=== PATIENT | female | born 1940 | race Caucasian/White ===

== ENCOUNTER 2018-12-13 07:42 | Outpatient (CLI) | payer MEDICARE, OTHER ==
[2018-12-13 08:57] LABS: EOSINOPHILS # (AUTO) 0.1 10^3/uL (0.0-0.7); HGB - HEMOGLOBIN 12.7 g/dL (12.0-16.0); LYMPHOCYTES # (AUTO) 1.3 10^3/uL (1.5-3.5); LYMPHOCYTES % (AUTO) 26.7 %; MEAN CORPUSCULAR HEMOGLOBIN 32.7 pg (27.0-31.0); MEAN CORPUSCULAR VOLUME 96.1 fL (81.0-99.0); MEAN PLATELET VOLUME 8.6 fL (7.9-10.8); MONOCYTES # (AUTO) 0.5 10^3/uL (0.0-1.0); MONOCYTES % (AUTO) 10.6 %; NEUTROPHILS # (AUTO) 2.8 10^3/uL (1.5-6.6); NEUTROPHILS % (AUTO) 58.7 %; PLT - PLATELET COUNT 188 10^3/uL (130-450); RED BLOOD COUNT 3.88 10^6/uL (4.20-5.40); RED CELL DISTRIBUTION WIDTH 13.3 % (12.0-15.0); WHITE BLOOD COUNT 4.8 x10^3/uL (4.8-10.8)
[2018-12-13 08:58] LABS: CALCIUM 9.1 mg/dL (8.5-10.3); CREATININE 0.8 mg/dL (0.4-1.0)
[2018-12-13 09:28] LABS: PLATELET ESTIMATE, MANUAL NORMAL (130-450,000) (NORMAL); PLATELET MORPHOLOGY NORMAL APPEARANCE (NORMAL); RBC MORPHOLOGY (MULTIPLE) NORMAL APPEARANCE (NORMAL)
== END 2018-12-13 07:43 | disposition home or self-care (01) ==
LOC: RT 07:42
PROVIDERS: ATTEND Orthopaedic Surgery Orthopaedic Surgery of the Spine
DX: Z01.818 Encounter for other preprocedural examination (principal)
CPT/HCPCS: 36415; 80048; 85025; 93005

== ENCOUNTER 2022-02-11 15:48 | Outpatient (CLI) | payer MEDICARE, OTHER ==
[2022-02-11 15:56] LABS: BASOPHILS # (AUTO) 0.1 10^3/uL (0.0-0.1); BASOPHILS % (AUTO) 1.3 %; EOSINOPHILS # (AUTO) 0.2 10^3/uL (0.0-0.7); EOSINOPHILS % (AUTO) 3.3 %; HCT - HEMATOCRIT 41.7 % (37.0-47.0); HGB - HEMOGLOBIN 13.7 g/dL (12.0-16.0); LYMPHOCYTES # (AUTO) 1.4 10^3/uL (1.5-3.5); LYMPHOCYTES % (AUTO) 30.9 %; MEAN CORPUSCULAR HEMOGLOBIN 32.2 pg (27.0-31.0); MEAN CORPUSCULAR HGB CONC 32.9 g/dL (32.0-36.0); MEAN CORPUSCULAR VOLUME 98.1 fL (81.0-99.0); MONOCYTES # (AUTO) 0.5 10^3/uL (0.0-1.0); MONOCYTES % (AUTO) 11.3 %; NEUTROPHILS # (AUTO) 2.4 10^3/uL (1.5-6.6); PLT - PLATELET COUNT 210 10^3/uL (130-450); RED BLOOD COUNT 4.25 10^6/uL (4.20-5.40); RED CELL DISTRIBUTION WIDTH 12.8 % (12.0-15.0); WHITE BLOOD COUNT 4.6 x10^3/uL (4.8-10.8)
[2022-02-11 16:11] LABS: ALBUMIN 4.2 g/dL (3.2-5.5); ALKALINE PHOSPHATASE 64 IU/L (42-121); ALT ALANINE AMINOTRANSFERASE 18 IU/L (10-60); AST ASPARTATE AMINOTRANSFERASE 21 IU/L (10-42); BILIRUBIN,TOTAL 1.1 mg/dL (0.2-1.0); BUN - BLOOD UREA NITROGEN 13 mg/dL (6-20); CARBON DIOXIDE - CO2 28 mmol/L (21-32); CHLORIDE 97 mmol/L (101-111); CREATININE 0.6 mg/dL (0.4-1.0); GFR - MDRD 96 (>89); GLUCOSE 102 mg/dL (70-100); POTASSIUM 4.3 mmol/L (3.5-5.0); SODIUM 135 mmol/L (135-145); TOTAL PROTEIN 7.1 g/dL (6.7-8.2)
[2022-02-11 16:12] LABS: ALBUMIN/GLOBULIN RATIO 1.4 (1.0-2.2); CHOL/HDL RATIO 3.8 (<4.4); CHOLESTEROL 296 mg/dL; HDL CHOLESTEROL 77 mg/dL; LDL CHOLESTEROL,CALCULATED 189 mg/dL; LDL/HDL RATIO 2.5 (<4.4); TRIGLYCERIDES 151 mg/dL; VLDL CHOLESTEROL 30 mg/dL
[2022-02-11 20:39] LABS: ESTIMATED AVERAGE GLUCOSE 123 mg/dL (70-100); HEMOGLOBIN A1c% 5.9 % (4.27-6.07)
== END 2022-02-11 15:49 | disposition home or self-care (01) ==
LOC: LAB.R 15:48
PROVIDERS: ATTEND Internal Medicine
DX: Z00.00 Encounter for general adult medical examination without abnormal findings (principal); E78.5 Hyperlipidemia, unspecified; R73.01 Impaired fasting glucose; M19.90 Unspecified osteoarthritis, unspecified site; Z13.6 Encounter for screening for cardiovascular disorders; Z79.899 Other long term (current) drug therapy; B02.9 Zoster without complications
CPT/HCPCS: 80053; 80061; 83036; 83721; 84443; 85025

== ENCOUNTER 2022-03-23 11:16 | Outpatient (CLI) | payer MEDICARE, OTHER ==
--- NOTE | 2022-03-23 14:43 | Mammography Report ---
BILATERAL DIGITAL SCREENING MAMMOGRAM 3D/2D: 03/23/2022 CLINICAL: Routine screening. Comparison is made to exams dated: 05/09/2020 mammogram, 12/31/2018 mammogram, and 03/31/2017 mammogram - [facility]. The tissue of both breasts is predominantly fatty. No significant masses, calcifications, or other findings are seen in either breast. There has been no significant interval change. IMPRESSION: NEGATIVE There is no mammographic evidence of malignancy. A 1 year screening mammogram is recommended. This exam was interpreted at Station ID: [id number]. NOTE: For mammograms, a report in lay terms will be sent to the patient. Approximately 15% of breast malignancies will not be visualized mammographically. In the management of a palpable breast mass, a negative mammogram must not discourage biopsy of a clinically suspicious lesion. Electronically Signed By: Chema Hernandez M.D., [email or web address]:03/23/2022 12:56:13 ACR BI-RADS Category 1: Negative 3341F PARENCHYMAL PATTERN: (F) - The breast(s) demonstrate(s) diffuse fatty replacement. BI-RADS CATEGORY: (1) - 1 RECOMMENDATION: (ANNUAL) - Recommend routine annual screening mammography. [id number] 1 year screening LATERALITY: (B)
== END 2022-03-23 11:17 | disposition home or self-care (01) ==
LOC: DI.S 11:16
PROVIDERS: ATTEND Internal Medicine
DX: Z12.31 Encounter for screening mammogram for malignant neoplasm of breast (principal)

== ENCOUNTER 2022-07-31 07:54 | Outpatient (CLI) | payer MEDICARE, OTHER ==
--- NOTE | 2022-07-31 11:23 | XRAY Report ---
PROCEDURE: Shoulder 3 View LT INDICATIONS: LEFT SHOULDER PAIN TECHNIQUE: 4 views of the shoulder were acquired. COMPARISON: None. FINDINGS: Bones: No fractures or dislocations. Mild to moderate acromioclavicular joint and glenohumeral join t osteoarthritic changes are seen with joint space narrowing and subchondral sclerosis. No suspicious bony lesions. Visualized ribs appear intact. Soft tissues: No suspicious soft tissue calcifications. IMPRESSION: Mild to moderate left shoulder joint osteoarthritis. No fracture or dislocation. No wilber s soft tissue abnormalities. Reviewed by: John Henriquez MD on 07/31/2022 11:22 AM PDT Approved by: John Henriquez MD on 07/31/2022 11:22 AM PDT Station ID: [id number]
== END 2022-07-31 23:59 | disposition home or self-care (01) ==
LOC: DI.WOS 07:54
PROVIDERS: ATTEND Physician Assistant
DX: M19.012 Primary osteoarthritis, left shoulder (principal)

== ENCOUNTER 2022-08-10 08:00 | Outpatient (CLI) | payer MEDICARE, OTHER ==
--- NOTE | 2022-08-10 11:37 | XRAY Report ---
PROCEDURE: Hip 2 View LT INDICATIONS: LEFT HIP PAIN TECHNIQUE: 2 views of the hip were acquired. COMPARISON: None FINDINGS: Bones: No fractures or dislocations. No suspicious bony lesions. The visualized pelvic ring appear s intact. Bilateral moderate hip joint space and narrowing with marginal osteophytes on the left. De generative changes noted in the lower lumbar spine with instrumentation partially imaged. Soft tissues: No suspicious soft tissue calcifications or masses. IMPRESSION: Moderate bilateral hip osteoarthritis, left greater than right. No fracture Reviewed by: Shelton Mattson MD on 08/10/2022 10:36 AM PALAK Approved by: Shelton Mattson MD on 08/10/2022 10:36 AM AKFORTINO Station ID: [id number]
== END 2022-08-10 23:59 | disposition home or self-care (01) ==
LOC: DI.WOS 08:00
PROVIDERS: ATTEND Physician Assistant
DX: M16.0 Bilateral primary osteoarthritis of hip (principal)

== ENCOUNTER 2022-09-19 12:04 | Emergency (ER) | payer MEDICARE, OTHER ==
[2022-09-19] MEDS ORDERED: iohexoL-300 100 ML VIAL ONE (12:44)
--- NOTE | 2022-09-19 12:47 | ED Physician Documentation ---
History of Present Illness - Stated complaint Stated Complaint: HEAD PAIN - Chief complaint Chief Complaint: Neuro - Additonal information Additional information: 82-year-old female presents emergency department for concerns that she could h ave had a TIA at home. She reports that she was simply sitting when she began to have tingling in both thighs as well as both arms. She suddenly heard a pop in her head and reports that her head slumped forward. She did not lose consciousness. She reports it took a minute before she was able to lift her head up. She denies that she had slurred speech or focal weakness in her arms or legs. No chest pain or shortness of air. No history of similar. She presents very well-appearing without any focal deficits. Symptoms occurred about 1 hour ago. Patient did take a baby aspirin 81 mg at home Review of Systems Constitutional: denies: Fever, Chills Ears: reports: Other ([place] a pop in her head) Nose: reports: Reviewed and negative Throat: reports: Reviewed and negative Cardiac: reports: Reviewed and negative Respiratory: reports: Reviewed and negative Skin: reports: Reviewed and negative Musculoskeletal: reports: Reviewed and negative Neurologic: reports: Generalized weakness. denies: Focal weakness, Numbness, Difficulty speaking, Syncope, Seizure, Headache, Head injury, LOC Psychiatric: reports: Reviewed and negative PD PAST MEDICAL HISTORY - Present Medications Home Medications: Ambulatory Orders Medication Instructions Recorded Confirmed Famciclovir 500 mg PO BID 09/19/22 09/19/22 Propranolol ER [Inderal LA] 60 mg PO DAILY 09/19/22 09/19/22 - Allergies Allergies/Adverse Reactions: Allergies Allergy/AdvReac Type Severity Reaction Status Date / Time codeine Allergy Hallucinati Verified 09/19/22 12:27 ons PD ED PE NORMAL - General General: Alert and oriented X 3, No acute distress, Well developed/nourished - HEENT HEENT: Atraumatic, EOMI, Ears normal, Moist mucous membranes, Pharynx benign - Neck Neck: Supple, no meningeal sign, No adenopathy - Cardiac Cardiac: RRR, No murmur - Respiratory Respiratory: No respiratory distress, Clear bilaterally - Abdomen Abdomen: Normal bowel sounds, Soft, Non tender - Neuro Neuro: Alert and oriented X 3, ob/gyn 2-12 intact, No motor deficit, No sensory deficit, Normal speech, Other (Normal gait, normal finger-nose, normal rapid alternating movements. Extraocular movements intact) Eye Opening: Spontaneous Motor: Obeys Commands Verbal: Oriented GCS Score: 15 Results - Vitals Vitals: Vital Signs - 24 hr 09/19/22 09/19/22 09/19/22 12:23 16:52 18:08 Temperature 37.3 C Heart Rate 56 L 58 L 65 Respiratory 16 16 19 Rate Blood Pressure 144/76 H 151/85 H 177/85 H O2 Saturation 100 100 100 Oxygen O2 Source Room air - Labs Labs: Laboratory Tests 09/19/22 09/19/22 13:02 13:02 WBC 8.3 RBC 4.23 Hgb 13.0 Hct 41.0 MCV 96.9 MCH 30.7 MCHC 31.7 L RDW 13.4 Plt Count 288 MPV 10.5 Neut # (Auto) 5.5 Lymph # (Auto) 1.9 Price # (Auto) 0.8 Eos # (Auto) 0.1 Baso # (Auto) 0.1 Absolute Nucleated RBC 0.00 Nucleated RBC % 0.0 Sodium 135 Potassium 4.9 Chloride 97 L Carbon Dioxide 28 Anion Gap 10.0 BUN 17 Creatinine 0.7 Estimated GFR (MDRD) 80 L Glucose 106 H Calcium 9.6 Total Bilirubin 0.7 AST 21 ALT 17 Alkaline Phosphatase 85 Total Protein 7.5 Albumin 4.2 Globulin 3.3 Albumin/Globulin Ratio 1.3 Lipase 34 - Rads (name of study) CT head with angio Radiology: Final report received (No acute intracranial hemorrhage demonstrated. No large vessel occlusion. Chronic microvascular ischemic disease. Enhancing focus at the left frontal lobe measuring 0.7 cm. This is concerning for a small mass possibly meningioma. Recommend MRI with IV contrast for further evaluation.) angio neck Radiology: Final report received (No critical stenosis. Vertebral artery dominant. Right vertebral artery terminates at PICA. Variant anatomy) MRI head Radiology: Final report received (9 mm Densely enhancing solid mass abutting the meningeal surface of the anterior cranial fossa on the left beneath the inferior margin the frontal lobe. Likely a small meningioma. Neurosurgical consultation recommended for recommendation of frequency of follow-up with subsequent brain MRI imaging) PD MEDICAL DECISION MAKING - ED course Complexity details: reviewed results, re-evaluated patient, considered differential, d/w patient, d/w family, d/w sap ppm consultant (Dr. Ervin snyder neurosurgeon) ED course: 82-year-old female presents to the emergency department for evaluation of sudden tingling in both her thighs and arms whereafter she shortly felt a pop in her head though did not have any associated pain. Reports that she dropped her head to her chest and had a difficult time lifting it for about 1 minute before all the symptoms fully resolved. subsequent CT imaging revealed the suspicion of a left frontal mass likely meningioma and the recommendation was for an MRI to be completed. We did complete the MRI in the emergency department and again a solid density 0.9 cm mass is seen in the left frontal lobe. CT imaging was sent to [facility] and I spoke with neurosurgeon Dr. Ernst Snyder on the phone. He would like the patient to be followed up at [facility] neurosurgery clinic. He would likely request that the patient have a repeat MRI in about 3 to 6 months. Patient will continue to follow-up with her primary care provider. I discussed plan and findings with the patient and her and she is comfortable with the discharge plan home. Departure - Departure Disposition: Home, Self Care Clinical Impression: Meningioma Condition: Stable Record reviewed to determine appropriate education?: Yes Comments: [place] you came to the emergency department today because earlier this afternoon you began to have some tingling in both your arms and legs and then You heard a pop in your head. Today your screening labs were essentially normal. We did do angiograms of your head and neck that did not show any findings of aneurysm or bleeding. However there was suggestion of a small mass in your left frontal lobe. We then completed imaging by obtaining an MRI of your brain. The MRI does show a small 0.9 cm mass in the left frontal lobe. This is likely a meningioma. These tend to be benign noncancerous growths. I did discuss the case with the neurosurgeon on-call at [facility] Dr. Ernst Snyder. He would like you to be followed up at the [facility] neurosurgery clinic. They do specialize in smaller masses such as these. They did take all of your vital information and they should be calling or emailing you within this week to help arrange follow-up. If you do not hear from them by of this upcoming week I encourage you to follow up by calling the [facility] batch roller operator at [phone]. Please ask for transfer to the [facility] neurosurgery clinic. You should tell them that Dr. Ernst Snyder is making a referral for you for a left frontal lobe mass/meningioma. Please also discuss this ED visit with your primary care provider. Should you develop any sudden severe headache, have uncontrolled vomiting, slurred speech facial droop or sudden weakness in your arms or legs you should return immediately to the ER.
[2022-09-19 13:30] LABS: BASOPHILS # (AUTO) 0.1 10^3/uL (0.0-0.1); BASOPHILS % (AUTO) 0.6 %; EOSINOPHILS # (AUTO) 0.1 10^3/uL (0.0-0.7); EOSINOPHILS % (AUTO) 1.4 %; LYMPHOCYTES # (AUTO) 1.9 10^3/uL (1.5-3.5); LYMPHOCYTES % (AUTO) 22.3 %; MEAN CORPUSCULAR HEMOGLOBIN 30.7 pg (27.0-31.0); MEAN CORPUSCULAR HGB CONC 31.7 g/dL (32.0-36.0); MEAN CORPUSCULAR VOLUME 96.9 fL (81.0-99.0); MEAN PLATELET VOLUME 10.5 fL (7.9-10.8); MONOCYTES # (AUTO) 0.8 10^3/uL (0.0-1.0); MONOCYTES % (AUTO) 9.4 %; NEUTROPHILS # (AUTO) 5.5 10^3/uL (1.5-6.6); NEUTROPHILS % (AUTO) 66.1 %; PLT - PLATELET COUNT 288 10^3/uL (130-450); RED BLOOD COUNT 4.23 10^6/uL (4.20-5.40); RED CELL DISTRIBUTION WIDTH 13.4 % (12.0-15.0); WHITE BLOOD COUNT 8.3 x10^3/uL (4.8-10.8)
[2022-09-19 13:42] LABS: ALBUMIN 4.2 g/dL (3.2-5.5); ALBUMIN/GLOBULIN RATIO 1.3 (1.0-2.2); BILIRUBIN,TOTAL 0.7 mg/dL (0.2-1.0); CREATININE 0.7 mg/dL (0.4-1.0); TOTAL PROTEIN 7.5 g/dL (6.7-8.2)
[2022-09-19 14:04] LABS: CALCIUM 9.6 mg/dL (8.5-10.3); POTASSIUM 4.9 mmol/L (3.5-5.0)
[2022-09-19] MEDS ORDERED: iohexoL-300 100 ML VIAL IVP ONE (14:37)
--- NOTE | 2022-09-19 15:02 | CT Report ---
PROCEDURE: ANGIO HEAD W/WO INDICATIONS: pop; sudden and resolved weakness CONTRAST: 80ml omni 300 TECHNIQUE: Precontrast 4.5 mm thick angled axial sections acquired from the foramen magnum to the vertex. Afte r the administration of intravenous contrast, 1 mm thick sections acquired through the [place] of [place] is. Postcontrast 4.5 mm thick sections then re-acquired from the foramen magnum to the vertex. 3-dim ensional mgteery-wodrcfuzf-jafjmexoal (MIP) and/or volume rendering reformats were acquired of the ce ntral intracranial vasculature. For radiation dose reduction, the following was used: automated exp osure control, adjustment of mA and/or kV according to patient size. COMPARISON: None. FINDINGS: Image quality: Excellent. Anterior circulation: Intracranial internal carotid arteries are normal in size and flow. The flow within the paired anterior cerebral arteries is normal and symmetric. The flow within the middle cer ebral arteries is normal and symmetric. The anterior communicating artery is seen. No aneurysms are seen. Posterior circulation: Left vertebral artery is dominant. The right vertebral artery terminates as PI CA. Flow within the posterior cerebral arteries is normal and symmetric. No aneurysms are seen. CSF spaces: Ventricles are normal in size and shape. Basal cisterns are patent. No extra-axial flu id collections. Brain: No midline shift. No hyperdense blood products seen. Enhancing focus in the left frontal lob e measuring 0.7 cm, (13/48). Periventricular hypodensity most consistent with chronic microvascular i schemic disease. No large area of hypodensity in a vascular distribution to suggest infarction. Skull and face: Calvarium and facial bones appear intact, without suspicious lesions. Sinuses: Near opacification of the right maxillary sinus. Mucosal thickening and the left maxilla sin us. IMPRESSION: 1. No acute intracranial hemorrhage demonstrated. 2. No large vessel occlusion. Chronic microvascular ischemic disease. 3. Enhancing focus at the left frontal lobe measuring 0.7 cm. This is concerning for a small mass, po ssibly a meningioma. Recommend MRI with IV contrast for further evaluation. 4. Maxillary sinusitis. Reviewed by: Thang Lehman MD on 09/19/2022 2:00 PM PALAK Approved by: Thang Lehman MD on 09/19/2022 2:00 PM AKFORTINO Station ID: [id number]
--- NOTE | 2022-09-19 15:08 | CT Report ---
PROCEDURE: ANGIO NECK W INDICATIONS: pop; sudden and resolved weakness CONTRAST: 80ml omni 300 TECHNIQUE: After the administration of intravenous contrast, 1.5 mm axial sections acquired from the aortic arch to the [place] of [place]. Coronal 3-D maximum intensity projection (MIP) and/or volume rendering ref ormats were then performed. For radiation dose reduction, the following was used: automated exposur e control, adjustment of mA and/or kV according to patient size. COMPARISON: Same day noncontrast head and head CTA. FINDINGS: Image quality: Excellent. Carotid system: The great vessels demonstrate a conventional anatomy as they arise from the aortic a [facility]. The origins of the common carotid arteries appear patent. The common carotid arteries demonstr ate normal calibers and courses. The bifurcation regions appear normal bilaterally. Mild calcified m etastatic plaque. The internal carotid arteries demonstrate normal caliber and course. Posterior circulation: The origins of the vertebral arteries appear patent. Left vertebral artery is patent. Right vertebral artery terminates as PICA. Soft tissues: Visualized neck soft tissues demonstrate no suspicious abnormalities. Subcentimeter ri ght thyroid nodule. Bilateral maxillary sinusitis. Prominent left supra clavicular node measuring 0.8 cm, (2/). Bones: No suspicious bony lesions. Moderate degenerative change of the cervical spine. Visualized ce rvical spine appears normally aligned. IMPRESSION: 1. No critical stenosis. 2. The vertebral artery dominant. Right vertebral artery terminates as PICA. Variant anatomy. The estimate of stenosis included in the report of the imaging study was calculated using the NASCET method Reviewed by: Thang Lehman MD on 09/19/2022 2:06 PM PALAK Approved by: Thang Lehman MD on 09/19/2022 2:06 PM PALAK Station ID: [id number]
[2022-09-19] MEDS ORDERED: SODIUM CHLORIDE 0.9% 1,000 ML IV STA (15:15)
[2022-09-19] MEDS ORDERED: GADOBUTROL 7.5 MMOL/7.5 ML VIAL ONE (19:09)
[2022-09-19] MEDS ORDERED: GADOBUTROL 7.5 MMOL/7.5 ML VIAL IVP ONE (19:30)
--- NOTE | 2022-09-19 20:34 | MRI Report ---
PROCEDURE: BRAIN W/WO INDICATIONS: ? left frontal lobe mass CONTRAST: 6.4 TECHNIQUE: Noncontrast axial T1 spin echo, axial T2 fast spin echo, sagittal and axial FLAIR, coronal T2 fast sp in echo, axial gradient echo, axial diffusion and ADC through the brain. After the administration of contrast, axial and coronal T1 spin echo with fat saturation through the brain. COMPARISON: None. The clinical history provided indicates a question of left frontal lobe mass. A co mparison CT or MRI is not available for review currently. FINDINGS: Image quality: Excellent. CSF spaces: Basal cisterns are patent. No extra-axial fluid collections. Ventricles are normal in size and shape. Brain: No midline shift. No intracranial bleeds but there is a supraorbital left frontal cranial fo ssa mass that is densely enhancing on postcontrast imaging, measuring 8 mm transverse and 9 mm AP wit h a craniocaudad length also of 9 mm. This abuts and probably emanates from the meningeal surface at that site, mildly impinging on the inferior border of the frontal lobe as a result. Adjacent edema is not seen within the brain parenchyma. No additional abnormal intracranial enhancement. There is ce rebral volume loss for age. There is periventricular white matter chronic small vessel ischemic [place]. The brainstem appears normal. Diffusion-weighted images demonstrate no acute ischemic insults. No chronic ischemic insults. Normal intravascular flow voids are present. Skull and face: Calvarial marrow is normal in signal. Orbits appear normal. Sinuses: Sinuses and mastoids appear clear. IMPRESSION: There is a 8 x 9 x 9 mm densely enhancing solid mass abutting the meningeal surface of t he anterior cranial fossa on the left, beneath the inferior margin of the left frontal lobe. This lik nya is a small meningioma, and is quite subtle on noncontrast MR pulse sequences. It is clearly evide nt on all postcontrast MR pulse sequences. Neurosurgical consultation is recommended for recommendati on of frequency of follow-up subsequent brain MRI imagin to assess for interval environmental change analyst time. Add itionally, if there is a outside comparison study it should also be obtained for review.. Reviewed by: Joao Tate MD on 09/19/2022 8:33 PM PDT Approved by: Joao Tate MD on 09/19/2022 8:33 PM PDT Station ID: [id number]
[2022-09-19 22:12] VITALS: BP 154/77
== END 2022-09-19 22:11 | disposition home or self-care (01) ==
LOC: ED 12:04
DX: D32.9 Benign neoplasm of meninges, unspecified (principal)
CPT/HCPCS: 36415; 70496; 70498; 70553; 80053; 83690; 85025; 96360; 99284; A9585; Q9967

== ENCOUNTER 2023-01-25 08:00 | Outpatient (CLI) | payer MEDICARE, OTHER ==
[2023-01-25 22:11] LABS: BACTERIAL VAGINOSIS DNA NEGATIVE (NEGATIVE); CANDIDA GLABRATA DNA POSITIVE (NEGATIVE); CANDIDA GROUP DNA NEGATIVE (NEGATIVE); CANDIDA KRUSEI DNA NEGATIVE (NEGATIVE); TRICHOMONAS VAGINALIS DNA NEGATIVE (NEGATIVE)
== END 2023-01-25 23:59 | disposition home or self-care (01) ==
LOC: LAB.WC 08:00
PROVIDERS: ATTEND Nurse Practitioner
DX: N89.8 Other specified noninflammatory disorders of vagina (principal)
CPT/HCPCS: 81514

== ENCOUNTER 2023-02-18 13:27 | Emergency (ER) | payer MEDICARE, OTHER ==
[2023-02-18 13:33] VITALS: BP 139/89
--- NOTE | 2023-02-18 13:35 | ED Physician Documentation ---
PD HPI DYSPNEA - Stated complaint Stated Complaint: COUGH,SOA - Chief complaint Chief Complaint: Resp - History obtained from History obtained from: Patient - History of Present Illness Timing - onset: How many weeks ago (3) Timing - onset during: Light activity Timing - duration: Weeks (3) Timing - details: Gradual onset, Still present (She states she and her developed cough with some chest congestion and productive sputum together about 3 weeks ago. They both started Z-Tee a week ago. He is doing better and olayinka ent is not.) Inciting event(s): URI (Patient states that started as head and chest cold with aches and congestion and productive cough. Persisting symptoms. Not worsening but not improving.). No: Out of meds Improved by: Other (Has not felt improved with Zithromax and Tessalon prescriptions.) Associated symptoms: Cough. No: Fever, Wheezing Review of Systems Constitutional: reports: Myalgias. denies: Fever Nose: reports: Congestion. denies: Rhinorrhea / runny nose Throat: denies: Sore throat Cardiac: reports: Chest pain / pressure (anterior chest and also upper abd muscles hurt with coughing.) Respiratory: reports: Dyspnea, Cough. denies: Wheezing GI: denies: Vomiting, Diarrhea Skin: denies: Rash PD PAST MEDICAL HISTORY - Past Medical History Cardiovascular: None Respiratory: None - Present Medications Home Medications: Ambulatory Orders Medication Instructions Recorded Confirmed Famciclovir 500 mg PO BID 09/19/22 09/19/22 Propranolol ER [Inderal LA] 60 mg PO DAILY 09/19/22 09/19/22 Albuterol Sulf [Ventolin Hfa 2 - 3 puffs INH QID 10 Days #1 each 02/18/23 Inhaler] Amoxicillin 500 mg PO TID #15 cap 02/18/23 dexAMETHasone [Decadron] 4 mg PO DAILY #5 tablet 02/18/23 - Allergies Allergies/Adverse Reactions: Allergies Allergy/AdvReac Type Severity Reaction Status Date / Time codeine Allergy Hallucinati Verified 02/18/23 13:30 ons PD ED PE NORMAL - Vitals Vital signs reviewed: Yes - General General: Alert and oriented X 3, Well developed/nourished - HEENT HEENT: Pharynx benign - Neck Neck: Supple, no meningeal sign, No adenopathy - Cardiac Cardiac: RRR, No murmur - Respiratory Respiratory: Clear bilaterally, Other (chestwall tenderness lower costal margin and some peristernal without crepitance. ) - Abdomen Abdomen: Soft, Non tender - Derm Derm: Normal color, Warm and dry - Extremities Extremities: No edema, No calf tenderness / cord - Neuro Neuro: Alert and oriented X 3, No motor deficit, Normal speech Results - Vitals Vitals: Oxygen O2 Source Room air - Rads (name of study) chest xray Relevant Findings:: Prelim report reviewed, EMP independent interpretation of test (no acute pulmonary process. ), See rad report PD Medical Decision Making - ED course Complexity details: reviewed results (no pneumonia nor PTX. Having persistent cough and now productive. Chest pain with coughing. ), considered differential, d/w patient Departure - Departure Disposition: 01 Home, Self Care Clinical Impression: Persistent cough, Bronchitis Condition: Stable Record reviewed to determine appropriate education?: Yes Instructions: ED Upper Resp Infec Abx Tx Follow-Up: Glory Robb MD [Primary Care Provider] - Prescriptions: Amoxicillin 500 mg PO TID #15 cap dexAMETHasone [Decadron] 4 mg PO DAILY #5 tablet Albuterol Sulf [Ventolin Hfa Inhaler] 2 - 3 puffs INH QID 10 Days #1 each Comments: Your chest x-ray is clear, no signs of pneumonia. By your description of the cough with some productive sputum and some trouble breathing, it does sound likely some bronchitis. This can be of viral or bacterial cause. Given the persistence of your symptoms, it might suggest starting with the viral type "chest cold" and now may be just persistent irritation though a secondary bacterial component would need to be considered. I would suggest using the albuterol inhaler 2 to 3 puffs with the spacer 4 times daily for the next 7 to 10 days. This should help breathing and decrease your cough. Presuming some bronchial inflammation, I would also add Decadron steroid daily for the next 5 days. Stay well-hydrated. You can continue the Robitussin cough medicine or benzonatate cough Per[place]. As there may be some bacterial component, I would add amoxicillin 3 times daily for 5 days. The Zithromax may not have improved symptoms because its not bacterial and is mainly viral/inflammatory but there is also a reasonable resistance to Zithromax and so sometimes it is bacterial but does not work anyway so we can try the amoxicillin as well. I sent your prescriptions to your preferred pharmacy, [facility]. Discharge Date/Time: 02/18/23 15:43
[2023-02-18] MEDS ORDERED: CHERRY SYRUP 10 ML UDC PO ONE (13:59)
[2023-02-18] MEDS ORDERED: DEXAMETHASONE 10 MG/ML VIAL PO STA (13:59)
[2023-02-18] MEDS ORDERED: ALBUTEROL 1 PUFF INH STA (13:59)
--- NOTE | 2023-02-18 15:00 | XRAY Report ---
PROCEDURE: Chest 1 View X-Ray INDICATIONS: cough and dyspnea TECHNIQUE: One view of the chest was acquired. COMPARISON: None. FINDINGS: Surgical changes and devices: Partially visualized thoracolumbar fixation rods. Lungs and pleura: No pleural effusions or pneumothorax. Lungs are clear. Mediastinum: Mediastinal contours appear normal. Heart size is normal. Bones and chest wall: No suspicious bony lesions. Overlying soft tissues appear unremarkable. IMPRESSION: No acute pulmonary process. Reviewed by: Dara Ruffin MD on 02/18/2023 2:58 PM PDT Approved by: Dara Ruffin MD on 02/18/2023 2:58 PM PDT Station ID: [id number]
== END 2023-02-18 15:43 | disposition home or self-care (01) ==
LOC: ED 13:27
DX: R05.3 Chronic cough (principal); J40 Bronchitis, not specified as acute or chronic
CPT/HCPCS: 71045; 94640; 99283; 99284; A9270

== ENCOUNTER 2023-06-07 08:00 | Outpatient (CLI) | payer MEDICARE, OTHER ==
--- NOTE | 2023-06-07 13:56 | XRAY Report ---
PROCEDURE: Hip 2 View LT INDICATIONS: LEFT HIP PAIN TECHNIQUE: 2 views of the hip were acquired. COMPARISON: 08/10/2022 FINDINGS: Bones: Partially imaged lumbar fusion surgical hardware. Degenerative changes of the bilateral hips. Findings are more severe on the left. Stable appearance of irregularity involving the superolateral margin of the left femoral head neck junction. Lower lumbar spondylosis. Soft tissues: No suspicious soft tissue calcifications or masses. IMPRESSION: 1. Left hip without acute fracture or dislocation. 2. Stable appearance of moderate left hip degenerative change with loss of normal sphericity of the s uperolateral head neck junction of the femoral neck. 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 3. Mild-moderate right hip degenerative change. Reviewed by: Teja Chavez MD on 06/07/2023 12:54 PM PALAK Approved by: Teja Chavez MD on 06/07/2023 12:54 PM PALAK Station ID: [id number]
== END 2023-06-07 23:59 | disposition home or self-care (01) ==
LOC: DI.WOS 08:00
PROVIDERS: ATTEND Physician Assistant Surgical
DX: M16.0 Bilateral primary osteoarthritis of hip (principal)

== ENCOUNTER 2024-03-24 08:52 | Outpatient (CLI) | payer MEDICARE, OTHER ==
--- NOTE | 2024-03-27 07:34 | Mammography Report ---
BILATERAL DIGITAL SCREENING MAMMOGRAM 3D/2D: 03/24/2024 CLINICAL: Routine screening. Comparison is made to exams dated: 03/23/2022 mammogram, 05/09/2020 mammogram, 12/31/2018 mammogram, and 03/31/2017 mammogram - [facility]. Both breasts are almost entirely fatty (category a/<25% glandular tissue). No significant masses, calcifications, or other findings are seen in either breast. There has been no significant interval change. IMPRESSION: NEGATIVE There is no mammographic evidence of malignancy. A 1 year screening mammogram is recommended. Based on the Tyrer Cuzick model (a risk assessment model) the patient's lifetime risk is 0.2% and her 10 year risk is 0.0%. According to the ACR, ACS, and NCCN guidelines, an annual breast MRI exam anamaria g with mammogram is recommended if the patient's lifetime risk is 20% or greater. This exam was interpreted at Station ID: [id number]. NOTE: For mammograms, a report in lay terms will be sent to the patient. Approximately 15% of breast malignancies will not be visualized mammographically. In the management of a palpable breast mass, a negative mammogram must not discourage biopsy of a clinically suspicious lesion. Electronically Signed By: Murray [email or web address]:03/24/2024 09:36:32 letter sent: No_Letter ACR BI-RADS Category 1: Negative 3341F PARENCHYMAL PATTERN: (F) - The breast(s) demonstrate(s) diffuse fatty replacement. BI-RADS CATEGORY: (1) - 1 RECOMMENDATION: (ANNUAL) - Recommend routine annual screening mammography. [id number] 1 year screening LATERALITY: (B)
== END 2024-03-24 08:53 | disposition home or self-care (01) ==
LOC: DI 08:52
PROVIDERS: ATTEND Internal Medicine
DX: Z12.31 Encounter for screening mammogram for malignant neoplasm of breast (principal)